=== PATIENT | female | born 1995 | race Caucasian/White ===

== ENCOUNTER 2017-05-09 06:00 | Day surgery (SDC) | payer OTHER ==
[2017-05-09] MEDS ORDERED: PERCOCET 5-3251 EACH PO (10:15)
[2017-05-09] MEDS ORDERED: DICLOFENAC POTA50 MG PO (10:15)
== END 2017-05-09 10:56 | disposition home or self-care (01) ==
LOC: CIR.AMB 06:00
DX: D27.0 Benign neoplasm of right ovary (principal)